=== PATIENT | female | born 1955 | race Caucasian/White ===

== ENCOUNTER → 2019-08-16 | Outpatient (CLI) | payer MEDICARE ==
[2019-08-16 14:10] LABS: APPEARANCE, URINE HAZY (CLEAR); BACTERIA, URINE AUTO 1+ (NEGATIVE); BILIRUBIN, URINE AUTO NEGATIVE (NEGATIVE); BLOOD, URINE BLOOD NEGATIVE (NEGATIVE); COLOR, URINE YELLOW (YELLOW); GLUCOSE, URINE (UA) AUTO NEGATIVE (NEGATIVE); KETONE, URINE AUTO TRACE mg/dL (NEGATIVE); LEUKOCYTE ESTERASE, URINE AUTO TRACE (NEGATIVE); MUCUS, URINE SMALL (NEGATIVE); NITRITE, URINE AUTO NEGATIVE (NEGATIVE); PROTEIN, URINE AUTO NEGATIVE (NEGATIVE); RBC, URINE AUTO 3 /HPF (0-3); SPECIFIC GRAVITY URINE AUTO 1.026 (1.002-1.035); SQUAMOUS EPITHELIAL CELL UR AU 2 /HPF (0-6); WBC, URINE AUTO 6 /HPF (0-3)
[2019-08-16 14:16] LABS: BASO % 0.5 % (0.0-1.0); EOS # 0.5 10^3/uL (0.0-0.5); EOS % 6.2 % (0.0-3.0); HEMATOCRIT 38.7 % (36.0-47.0); HEMOGLOBIN 12.2 g/dl (12.0-15.5); LYMPH # 2.5 10^3/uL (1.5-5.0); LYMPH % 29.9 % (24.0-44.0); MEAN CORPUSCULAR HEMOGLOBIN 29.3 pg (27.0-33.0); MEAN CORPUSCULAR HGB CONC 31.5 g/dl (32.0-36.5); MEAN CORPUSCULAR VOLUME 92.8 fl (80.0-96.0); MONO # 0.6 10^3/uL (0.0-0.8); MONO % 7.1 % (0.0-5.0); NEUTROPHILS # 4.6 10^3/uL (1.5-8.5); NEUTROPHILS % 56.1 % (36.0-66.0); PLATELET COUNT, AUTOMATED 317 10^3/uL (150-450); RED BLOOD COUNT 4.17 10^6/uL (4.00-5.40); WHITE BLOOD COUNT 8.2 10^3/uL (4.0-10.0)
[2019-08-16 14:32] LABS: HEMOGLOBIN A1c 7.3 %
[2019-08-16 14:56] LABS: ALBUMIN 3.3 GM/DL (3.2-5.2); ALT/SGPT 15 U/L (12-78); BILIRUBIN,TOTAL 0.4 MG/DL (0.2-1.0); BLOOD UREA NITROGEN 18 MG/DL (7-18); CALCIUM LEVEL 8.5 MG/DL (8.8-10.2); CARBON DIOXIDE LEVEL 28 MEQ/L (21-32); CHLORIDE LEVEL 107 MEQ/L (98-107); CHOLESTEROL LEVEL 170 MG/DL (<200); CHOLESTEROL RISK RATIO 3.333 (<5); COMPLEMENT C3 106 MG/DL (90-180); COMPLEMENT C4 25 MG/DL (10-40); CREATININE FOR GFR 0.63 MG/DL (0.55-1.30); FREE T4 0.98 NG/DL (0.76-1.46); GLOMERULAR FILTRATION RATE > 60.0 (>45); GLUCOSE, FASTING 130 MG/DL (70-100); HDL CHOLESTEROL 51 MG/DL (>40); LDL CHOLESTEROL 91 MG/DL (<100); NON-HDL-C 119 MG/DL; POTASSIUM SERUM 4.2 MEQ/L (3.5-5.1); RHEUMATOID FACTOR QUANT < 10.0 IU/ML (<15.0); SODIUM LEVEL 141 MEQ/L (136-145); TOTAL PROTEIN 6.8 GM/DL (6.4-8.2); TRIGLYCERIDES LEVEL 141 MG/DL (<150); URIC ACID 3.3 MG/DL (2.6-6.0)
[2019-08-16 14:57] LABS: TOTAL 25(OH) VITAMIN D 20.7 NG/ML (30.0-100.0)
[2019-08-16 14:58] LABS: ERYTHROCYTE SEDIMENTATION RATE 17 mm/hr (0-30)
== END ==
LOC: M LAB 12:56
PROVIDERS: ATTEND Family Medicine
DX: M25.50 Pain in unspecified joint (principal); Z13.228 Encounter for screening for other metabolic disorders; E11.9 Type 2 diabetes mellitus without complications; Z79.899 Other long term (current) drug therapy

== ENCOUNTER → 2019-10-15 | Outpatient (CLI) | payer MEDICARE ==
[~2019-10-15] MED LIST: ATOR1TAB19 PO; CLON0.12 PO; ENAL5TAB PO; METO1TAB87 PO; OXYC15TA76 PO; VENL150C43 PO
--- NOTE | 2019-10-16 12:50 | RADONC ---
RADIATION ONCOLOGY CONSULTATION NOTE DATE: 10/15/2019 CHART NUMBER: [id number] DIAGNOSIS: Left breast cancer. STAGE: 0, [id number], grade 2, ER positive, WV positive. ECOG PERFORMANCE STATUS: 0 CONSULTATION NOTE: Ms. 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 HISTORY OF PRESENT ILLNESS: The patient was in her usual state of health until routine mammogram done on 04/23/2019 showed a group of microcalcifications. A subsequent stereotactic biopsy was done of the 7 o'clock position and pathology revealed a moderately differentiated ductal carcinoma in situ. On 08/05/2019 the patient underwent lumpectomy and pathology revealed an 18 mm x 8 mm region of moderately differentiated ductal carcinoma in situ. The tumor was estrogen receptor and progesterone receptor positive. At the time of surgery, a balloon applicator was placed for intraoperative radiation therapy for a dose of 20 hammond. This again was delivered on 08/05/2019. Review revealed that there were positive margins present and on 09/11/2018 the patient underwent reexcision. Pathology revealed a residual focus of ductal carcinoma in situ. All margins of resection are now negative for malignancy and the patient is being referred to us for discussion of possible external beam radiation therapy to the whole breast in order to achieve local control. PAST MEDICAL HISTORY: The patient's past medical history is positive for asthma, depression, diabetes, fibromyalgia, headaches, hypertension, low back pain, neuromuscular disorders, and sleep apnea. She has had an appendectomy, bladder surgery, a section, a cholecystectomy, leg surgery and a colonoscopy in the past. ALLERGIES: The patient reports being allergic to: 1. PAXIL. 2. BENADRYL. 3. SUDAFED. 4. She also reports she has reactions to any type of ARTHRITIS MEDICATION. SOCIAL HISTORY: The patient does not smoke cigarettes nor abuse alcohol. FAMILY HISTORY The patient's family history is positive for a mother that of some type of malignancy. She had a sister with cervical and ovarian cancer and another sister with breast cancer. REVIEW OF SYSTEMS: The patient's review of systems is positive for some anxiety as well as decreased energy and some constipation. She has physical limitations secondary to her fibromyalgia and joint pain. Her review of systems is otherwise noncontributory. She denies nausea, vomiting, fevers, chills, night sweats, diplopia, headaches, anxiety or depression, anorexia, weight loss, visual disturbances, chest pain, urinary or bowel difficulties, bone pain, or neurological problems. PHYSICAL EXAMINATION: The patient is a well-developed, well-nourished white female in no acute distress. HEENT exam is normocephalic, atraumatic. Extraocular movements are intact. There is no palpable cervical, supraclavicular, infraclavicular, axillary, or inguinal lymphadenopathy present. Lungs are clear to auscultation and percussion. Heart has a regular rate and rhythm. Abdomen is benign with no hepatosplenomegaly, masses, or tenderness. Breast examination reveals no masses or discharge bilaterally. Skeletal examination reveals no tenderness to pressure or percussion of the bony skeleton. Extremities reveal no clubbing, cyanosis, or edema. Neurologic exam is grossly intact, as is the remainder of the physical examination. ASSESSMENT: Clearly the patient is a candidate for external beam radiation therapy and I have so informed her. I have discussed with the patient in detail the potential benefits as well as possible acute and chronic sequelae of external beam radiation therapy. We discussed the logistics of treatment planning, simulation and subsequent fractionated daily radiation treatment. I have scheduled the patient for the next available simulation slot and radiation treatments will begin subsequently. I have reviewed the recommendations of the radiation oncologist, Dr. Mena Sandoval MD from [facility] and I agree with the recommendations. We are also planning on delivering a dose of 4000 cGy delivered in 15 fractions over a three week period. Her intraoperative brachytherapy will be used as her boost treatment. I did discuss the fact that she has had radiation therapy to her primary site and that this does increase the chances of some fibrosis in that region. Thank you for allowing us to participate in the care of this very pleasant woman. If I could be of any further assistance, or provide you with any information, please free to contact me anytime. cc: MD Grecia Bee MD
== END ==
LOC: M ONCR 09:00
PROVIDERS: ATTEND Radiology Radiation Oncology
DX: C50.912 Malignant neoplasm of unspecified site of left female breast (principal)

== ENCOUNTER → 2019-11-19 | Outpatient (RCR) | payer MEDICARE ==
[2019-10-22 11:36] LABS: BASO # 0.1 10^3/uL (0.0-0.2); BASO % 0.6 % (0.0-1.0); EOS # 0.3 10^3/uL (0.0-0.5); HEMATOCRIT 40.4 % (36.0-47.0); HEMOGLOBIN 13.1 g/dl (12.0-15.5); LYMPH # 2.6 10^3/uL (1.5-5.0); LYMPH % 32.1 % (24.0-44.0); MEAN CORPUSCULAR HEMOGLOBIN 29.9 pg (27.0-33.0); MEAN CORPUSCULAR HGB CONC 32.4 g/dl (32.0-36.5); MEAN CORPUSCULAR VOLUME 92.2 fl (80.0-96.0); MONO # 0.7 10^3/uL (0.0-0.8); NEUTROPHILS # 4.5 10^3/uL (1.5-8.5); NEUTROPHILS % 55.2 % (36.0-66.0); PLATELET COUNT, AUTOMATED 318 10^3/uL (150-450); RED BLOOD COUNT 4.38 10^6/uL (4.00-5.40); WHITE BLOOD COUNT 8.2 10^3/uL (4.0-10.0)
--- NOTE | 2019-10-24 10:00 | RADONC ---
RADIATION ONCOLOGY SIMULATION NOTE DATE: 10/22/2019 CHART #: [id number] Ms. Jain was taken to the CT scan for CT simulation of her left breast field. CT was accomplished without difficulty or discomfort. Radiation treatment planning is underway and radiation treatments will begin subsequently. An immobilization device was created and will be used throughout the course of treatment. It was created without difficulty or discomfort. I was physically present throughout the course of CT simulation.
--- NOTE | 2019-11-05 11:25 | RADONC ---
RADIATION ONCOLOGY PROGRESS NOTE: DATE: 11/04/2019 CHART NUMBER: [id number]. Yelena Jain with a diagnosis of left breast cancer is currently receiving external beam radiotherapy. She was noted to be a stage 0, Tis N0 M0, grade 2, ER positive CA positive. She underwent two surgeries for complete clearance and is tolerating her external beam radiotherapy reasonably well. She denies any nausea, vomiting, coughing, sputum production or hemoptysis. Her energy level is somewhat diminished but she is still able to maintain most day-to-day activities without any alteration of her lifestyle. Skin irritation is denied. EXAMINATION FINDINGS: The skin within the irradiated volume shows no erythema. There is a firmness noted in the left breast consistent with post surgical induration. No lymphadenopathy is appreciated. The remainder of the physical examination is unchanged. IMPRESSION: Tolerating therapy well. Plan treatments to continue.
--- NOTE | 2019-11-11 14:54 | RADONC ---
RADIATION ONCOLOGY PROGRESS NOTE DATE: 11/11/2019 CHART NUMBER: [id number] PROGRESS NOTE: Ms. Jain is presently at a dose of 2403 cGy to her left breast and is tolerating treatments quite well at this point with no significant difficulties related to her radiation therapy. She has no breast or bone pain. REVIEW OF SYSTEMS: The patient's review of systems is noncontributory. Denies nausea, vomiting, fevers, chills, night sweats, diplopia, headaches, anxiety or depression, anorexia, weight loss, visual disturbances, chest pain, urinary or bowel difficulties, bone pain, or neurological problems. PHYSICAL EXAMINATION: Physical examination was deferred secondary to COVID-19. ASSESSMENT: Ms. Jain is tolerating treatments quite well and radiation will continue as scheduled.
--- NOTE | 2019-11-18 14:07 | RADONC ---
RADIATION ONCOLOGY PROGRESS NOTE DATE: 11/18/2019 CHART NUMBER: [id number] PROGRESS NOTE: Ms. Jain is presently at a dose of 4005 cGy to her left breast and was last treated on 11/15/2019. The patient did not come in today secondary to machine breakdown. As of last week the patient had been tolerating her treatments quite well with no significant difficulties related to her radiation therapy. The patient is scheduled to resume radiation tomorrow if the machine is repaired.
== END ==
LOC: M ONCR 10-22 10:39
PROVIDERS: ATTEND Radiology Radiation Oncology
DX: D05.12 Intraductal carcinoma in situ of left breast (principal)

== ENCOUNTER 2019-11-20 11:44 | Outpatient (RCR) | payer MEDICARE ==
[~2019-11-20 11:44] MED LIST changes: +OXYC-1 PO; -OXYC15TA76 PO
--- NOTE | 2019-11-20 13:36 | RADONC ---
RADIATION ONCOLOGY TREATMENT SUMMARY DATE: 11/20/2019 CHART NUMBER: [id number] DIAGNOSIS: Left breast cancer. STAGE: 0, Tis, N0, M0, grade 2, ER positive, [place] positive. ECOG PERFORMANCE STATUS 0 TREATMENT SUMMARY: Ms. 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 We treated the patient to the left breast for a total dose of 4005 cGy delivered in 15 fractions of 260 cGy each over 21 elapsed days from 10/30/2019 through 11/20/2019. The patient's left breast was treated on a linear accelerator utilizing a 3-D conformal technique with a combination of 6X and 10X photons utilizing medial and lateral tangential arita as well. Ms. Jain tolerated her treatments quite well without difficulties. The intraoperative radiation was her boost to the primary site. I have scheduled the patient to see me again in 1 month for further followup. She will also continue to be followed by her other physicians as well. cc: MD Grecia Bee MD
[2019-12-17] MEDS ORDERED: METF-791 PO (14:44)
[2019-12-17] MEDS ORDERED: CLON1TAB8 PO (14:44)
[2019-12-17] MEDS ORDERED: ONDA4TAB6 PO (14:44)
[2019-12-17] MEDS ORDERED: ANAS1TAB2 PO (15:36)
== END 2019-12-19 ==
LOC: M ONCR 11:44
PROVIDERS: ATTEND Radiology Radiation Oncology
DX: D05.12 Intraductal carcinoma in situ of left breast (principal)

== ENCOUNTER → 2019-11-29 | Outpatient (REF) | payer MEDICARE ==
[~2019-11-29] MED LIST changes: +ANAS1TAB2 PO; +CLON1TAB8 PO; +METF-791 PO; +ONDA4TAB6 PO
[2019-11-29 17:49] LABS: HEMOGLOBIN A1c 7.2 %
[2019-11-29 17:54] LABS: ALBUMIN 3.5 GM/DL (3.2-5.2); ALT/SGPT 26 U/L (12-78); BILIRUBIN,TOTAL 0.7 MG/DL (0.2-1.0); BLOOD UREA NITROGEN 18 MG/DL (7-18); CALCIUM LEVEL 8.7 MG/DL (8.8-10.2); CARBON DIOXIDE LEVEL 30 MEQ/L (21-32); CHLORIDE LEVEL 107 MEQ/L (98-107); GLOMERULAR FILTRATION RATE > 60.0 (>45); GLUCOSE, FASTING 91 MG/DL (70-100); POTASSIUM SERUM 4.8 MEQ/L (3.5-5.1); SODIUM LEVEL 141 MEQ/L (136-145); TOTAL PROTEIN 7.3 GM/DL (6.4-8.2)
[2019-11-29 18:42] LABS: HIV 1&2 SCREEN CENTAUR NEGATIVE (NEGATIVE)
[2019-12-02 08:34] LABS: HEPATITIS C VIRUS ABY INDEX 0.1 INDEX (<0.8)
== END ==
LOC: M SFHCPLAZ 15:23
DX: Z86.39 Personal history of other endocrine, nutritional and metabolic disease (principal); R11.2 Nausea with vomiting, unspecified
CPT/HCPCS: 80053; 83036; 86803; 87389; G0463

== ENCOUNTER → 2019-12-25 | Outpatient (CLI) | payer MEDICARE ==
--- NOTE | 2019-12-28 15:37 | RADONC ---
RADIATION ONCOLOGY FOLLOWUP NOTE DATE: 12/25/2019 This is a telemedicine visit. The patient was informed of the risks including security breech, technological failure, inability to perform a comprehensive physical exam which could delay or prevent an accurate diagnosis, and potential complications from treatment decisions rendered over a telemedicine platform. The patient understands and consented to the use of telehealth services phone only. CHART NUMBER: [id number] DIAGNOSIS: Left breast cancer. STATE: 0, [id number], grade 2, ER positive, WA positive. ECOG PERFORMANCE STATUS: 0 FOLLOWUP NOTE: Ms. 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 The patient presents today reporting that she is doing quite well with no complaints at this time related to radiation therapy or disease other than some residual peeling and some mild tenderness. REVIEW OF SYSTEMS: The patient's review of systems is positive for some peeling tenderness but is otherwise noncontributory. Denies nausea, vomiting, fevers, chills, night sweats, diplopia, headaches, anxiety or depression, anorexia, weight loss, visual disturbances, chest pain, urinary or bowel difficulties, bone pain, or neurological problems. PHYSICAL EXAMINATION: Physical examination was deferred as per COVID-19 precautions. This was a telephone consultation. ASSESSMENT: The patient is clinically doing well at this time. I have set her up for routine followup in our office in 6 months' time. She will also continue to be followed by her other physicians in the meantime. cc: MD Grecia Bee MD
== END ==
LOC: M ONCR 11:18
PROVIDERS: ATTEND Radiology Radiation Oncology
DX: D05.12 Intraductal carcinoma in situ of left breast (principal)

== ENCOUNTER → 2019-12-27 | Outpatient (CLI) | payer MEDICARE ==
[~2019-12-27] MED LIST changes: -METF-791 PO; +METF-838 PO
--- NOTE | 2020-01-01 15:21 | DEXA ---
AP SPINE L1 - L4 1.363 1.4 2.8 LT FEMUR TOTAL 1.084 0.6 1.7 LT NECK 0.876 -1.2 0.2 RT FEMUR TOTAL 1.092 0.7 1.8 RT NECK 0.925 -0.8 0.6 TOTAL BODY TOTAL OTHER COMMENTS: Normal bone densitometry of the spine. Normal bone densitometry of the right hip. There is low bone density of the left hip. FOLLOW-UP: Recommendation for the next bone density exam: 2 years. LAUREN
== END ==
LOC: M WHC 14:09
PROVIDERS: ATTEND Internal Medicine Medical Oncology
DX: C50.919 Malignant neoplasm of unspecified site of unspecified female breast (principal); Z78.0 Asymptomatic menopausal state

== ENCOUNTER → 2020-03-24 | Outpatient (CLI) | payer MEDICARE ==
[~2020-03-24] MED LIST changes: +ENAL5TA PO; -ENAL5TAB PO; +TAMO20TA8 PO
--- NOTE | 2020-05-01 14:22 | SLEEPHOME ---
DATE: 03/24/2020 ORDERED BY: Beverly Zendejas Diagnostic home sleep testing was performed due to concern for the obstructive sleep apnea syndrome in this patient with a history of same, who also suffers comorbidities of hypertension and diabetes. For testing, a nocturnal T3 respiratory monitoring device was used. Continuous record was made of pulse oxygen saturation and air flow, chest and abdominal strain, and body position. There was 9 hours and 59 minutes of data reviewed. There were 8 hours and 44 minutes marked as time in bed. During the interval marked time in bed, there were 170 respiratory events identified of 10 seconds in duration or greater for a respiratory event index of 19.4 per hour. The events were primarily obstructive. Baseline pulse rate 81. Pulse rate ranged 54-106. Baseline saturation 92%. Saturations fell to 82%. Testing was performed in both the supine and non-supine positions. IMPRESSION: Abnormal home sleep testing with repetitive respiratory events and oxygen desaturations to 82% with a respiratory event index of 19.2 is consistent with the obstructive sleep apnea syndrome. RECOMMENDATION: The patient should be encouraged to undergo formal sleep evaluation. DEAND
== END ==
LOC: M SLEEP HO 14:35
PROVIDERS: ATTEND Nurse Practitioner Adult Health
DX: G47.30 Sleep apnea, unspecified (principal)